=== PATIENT | female | born 2000 | race Caucasian/White ===

== ENCOUNTER 2024-06-29 21:51 | Emergency (ER) | payer MEDICAID, OTHER ==
[~2024-06-29] VITALS: Ht 157.5 cm; Wt 101.0 kg
[2024-06-30] MEDS: ONDANSETRON 4MG ORAL DISINTEGRATING TAB PO ONE (01:54)
[2024-06-30 02:11] LABS: HEMATOCRIT 38.9 % (36.0-47.0); HEMOGLOBIN 13.1 g/dl (12.0-15.5); MEAN CORPUSCULAR HEMOGLOBIN 27.7 pg (27.0-33.0); MEAN CORPUSCULAR HGB CONC 33.7 g/dl (32.0-36.5); MEAN CORPUSCULAR VOLUME 82.2 fl (80.0-96.0); PLATELET COUNT, AUTOMATED 348 10^3/uL (150-450); RED BLOOD COUNT 4.73 10^6/uL (4.00-5.40); WHITE BLOOD COUNT 10.2 10^3/uL (4.0-10.0)
[2024-06-30 02:37] LABS: ATYPICAL LYMPH 4 % (0-5); EOSINOPHILS 3 % (0-3); LYMPHOCYTES 48 % (16-44); MONOCYTES 5 % (0-5); NEUTROPHILS 40 % (28-66); PLATELET ESTIMATE NORMAL (NORMAL)
[2024-06-30 02:42] LABS: BLOOD UREA NITROGEN < 5 MG/DL (9-23); CALCIUM LEVEL 9.4 MG/DL (8.5-10.1); CARBON DIOXIDE LEVEL 27 MMOL/L (20-31); CHLORIDE LEVEL 106 MMOL/L (98-107); CREATININE FOR GFR 0.41 MG/DL (0.55-1.30); GLOMERULAR FILTRATION RATE > 60.0 (>60); GLUCOSE, FASTING 241 MG/DL (60-100); POTASSIUM SERUM 4.1 MMOL/L (3.5-5.1); SODIUM LEVEL 139 MMOL/L (136-145)
[2024-06-30] MEDS ORDERED: CEPH500C PO (03:41)
[2024-06-30] MEDS ORDERED: ONDA-282 PO (03:41)
[2024-06-30] MEDS: CEPHALEXIN 500 MG CAP PO ONE (03:53)
[2024-06-30 04:01] VITALS: BP 162/89; TEMP 99.8; O2SAT 99
== END 2024-06-30 04:29 | disposition home or self-care (01) ==
LOC: EDBD 21:51 → M ED 21:51
DX: A09 Infectious gastroenteritis and colitis, unspecified (principal); H00.014 Hordeolum externum left upper eyelid; E11.9 Type 2 diabetes mellitus without complications; I10 Essential (primary) hypertension; F41.9 Anxiety disorder, unspecified

== ENCOUNTER 2024-08-19 19:32 | Emergency (ER) | payer OTHER ==
[~2024-08-19] VITALS: Ht 154.9 cm; Wt 102.6 kg
[~2024-08-19 19:32] MED LIST: CEPH500C PO; ONDA-282 PO
[2024-08-19] MEDS: NS (Normal Saline) 0.9% 1,000 ML IV ONE (20:50)
[2024-08-19 20:56] LABS: BASO % 0.2 % (0.0-1.0); EOS % 0.2 % (0.0-3.0); HEMATOCRIT 33.9 % (36.0-47.0); HEMOGLOBIN 11.4 g/dl (12.0-15.5); LYMPH # 2.2 10^3/uL (1.5-5.0); LYMPH % 16.1 % (24.0-44.0); MEAN CORPUSCULAR HEMOGLOBIN 27.4 pg (27.0-33.0); MEAN CORPUSCULAR HGB CONC 33.6 g/dl (32.0-36.5); MEAN CORPUSCULAR VOLUME 81.5 fl (80.0-96.0); MONO % 7.1 % (2.0-8.0); NEUTROPHILS # 10.4 10^3/uL (1.5-8.5); NEUTROPHILS % 75.6 % (36.0-66.0); PLATELET COUNT, AUTOMATED 310 10^3/uL (150-450); RED BLOOD COUNT 4.16 10^6/uL (4.00-5.40); WHITE BLOOD COUNT 13.7 10^3/uL (4.0-10.0)
[2024-08-19 20:59] LABS: VENOUS HCO3 21.9 MMOL/L (23.0-27.0); VENOUS O2 SATURATION 94.7 % (60.0-80.0); VENOUS PARTIAL PRESSURE CO2 34.7 mmHg (38.0-50.0); VENOUS PARTIAL PRESSURE O2 70.3 mmHg (30.0-50.0); VENOUS PH 7.418 UNITS (7.330-7.430); VENOUS STANDARD HCO3 22.7 MMOL/L
[2024-08-19 22:00] LABS: ALBUMIN 2.4 G/DL (3.2-5.2); ALKALINE PHOSPHATASE 101 U/L (35-104); ALT/SGPT 29 U/L (7.0-40); AST/SGOT 48 U/L (<34); BILIRUBIN,DIRECT < 0.1 MG/DL (<0.4); BILIRUBIN,TOTAL 0.3 MG/DL (0.3-1.2); BLOOD UREA NITROGEN < 5 MG/DL (9-23); CALCIUM LEVEL 9.3 MG/DL (8.5-10.1); CARBON DIOXIDE LEVEL 22 MMOL/L (20-31); CHLORIDE LEVEL 97 MMOL/L (98-107); CREATININE FOR GFR 0.46 MG/DL (0.55-1.30); GLOMERULAR FILTRATION RATE > 60.0 (>60); GLUCOSE, FASTING 368 MG/DL (60-100); POTASSIUM SERUM 5.8 MMOL/L (3.5-5.1); SODIUM LEVEL 129 MMOL/L (136-145); TOTAL PROTEIN 6.5 G/DL (5.7-8.2)
[2024-08-19 22:02] LABS: OSMOLALITY SERUM 283 MOSM/KG (275-295)
[2024-08-19 22:09] LABS: KETONE, URINE AUTO RFX NEGATIVE (NEGATIVE); NITRITE, URINE AUTO RFX NEGATIVE (NEGATIVE); RBC, URINE AUTO RFX 1 /HPF (0-3); SQUAM EPITHELIAL CELL UR AURFX 1 /HPF (0-6)
[2024-08-19 22:10] LABS: LEUKOCYTE ESTERASE UR AUTO RFX 3+ (NEGATIVE); WBC, URINE AUTO RFX 28 /HPF (0-3)
[2024-08-19 22:29] LABS: ACETONE/KETONE 0.11 MMOL/L (0.02-0.27)
[2024-08-19] MEDS ORDERED: CEFD300C PO (23:47)
[2024-08-19] MEDS: cefTRIAXone SOD 2 GM in DEXTROSE 5% (D5W) ADV/MINI-BAG 50 ML IV ONE (23:59)
[2024-08-20 00:15] VITALS: BP 107/68; TEMP 98; O2SAT 98
== END 2024-08-20 00:26 | disposition home or self-care (01) ==
LOC: M ED 19:32
DX: E11.65 Type 2 diabetes mellitus with hyperglycemia (principal); N39.0 Urinary tract infection, site not specified; F79 Unspecified intellectual disabilities; Z79.899 Other long term (current) drug therapy
CPT/HCPCS: 80048; 80076; 81001; 82010; 82803; 83930; 85025; 87088; 87186; 93041; 94760; 96361; 96365; 99285; J0696

== ENCOUNTER 2024-10-12 16:33 | Inpatient (IN) | payer OTHER ==
[~2024-10-12] VITALS: Ht 160 cm; Wt 100.8 kg
[~2024-10-12 16:33] MED LIST changes: +CEFD300C PO
[2024-10-12 17:21] LABS: HEMATOCRIT 38.5 % (36.0-47.0); HEMOGLOBIN 12.7 g/dl (12.0-15.5); MEAN CORPUSCULAR HEMOGLOBIN 27.7 pg (27.0-33.0); MEAN CORPUSCULAR VOLUME 84.1 fl (80.0-96.0); PLATELET COUNT, AUTOMATED 398 10^3/uL (150-450); RED BLOOD COUNT 4.58 10^6/uL (4.00-5.40); WHITE BLOOD COUNT 11.4 10^3/uL (4.0-10.0)
[2024-10-12 17:34] LABS: AMPHETAMINES LEVEL URINE NEGATIVE (NEGATIVE); BARBITURATES URINE NEGATIVE (NEGATIVE)
[2024-10-12 17:35] LABS: BENZODIAZEPINES URINE NEGATIVE (NEGATIVE); CANNABINOIDS URINE NEGATIVE (NEGATIVE); COCAINE METABOLITE URINE NEGATIVE (NEGATIVE); METHADONE URINE NEGATIVE (NEGATIVE); OPIATES URINE NEGATIVE (NEGATIVE); PHENCYCLIDINE URINE NEGATIVE (NEGATIVE)
[2024-10-12 17:37] LABS: ETHYL ALCOHOL (ETHANOL) 0.004 % (0.000-0.010)
[2024-10-12] MEDS ORDERED: VITA200021 PO (17:37)
[2024-10-12] MEDS ORDERED: METF-838 PO (17:37)
[2024-10-12] MEDS ORDERED: GUAN1TAB16 PO (17:37)
[2024-10-12] MEDS ORDERED: METO1TAB7 PO (17:37)
[2024-10-12] MEDS ORDERED: HYDR-3363 PO (17:37)
[2024-10-12] MEDS ORDERED: APAP325T4 PO (17:37)
[2024-10-12] MEDS ORDERED: LURA120T PO (17:37)
[2024-10-12] MEDS ORDERED: LAMO25TA4 PO (17:37)
[2024-10-12] MEDS ORDERED: INSU100V3 INJ (17:37)
[2024-10-12] MEDS ORDERED: TRAZ-252 PO (17:37)
[2024-10-12] MEDS ORDERED: NAPR-885 PO (17:37)
[2024-10-12] MEDS ORDERED: PRAZ1CAP PO (17:37)
[2024-10-12] MEDS ORDERED: SEMA1PEN2 SQ (17:37)
[2024-10-12] MEDS ORDERED: LANTINJ4 SC (17:37)
[2024-10-12] MEDS ORDERED: PANT40TA29 PO (17:37)
[2024-10-12] MEDS ORDERED: LORA-1041 PO (17:37)
[2024-10-12 17:38] LABS: SALICYLATE LEVEL < 3.0 MG/DL (<30)
[2024-10-12 17:39] LABS: ALBUMIN 3.6 G/DL (3.2-5.2); ALKALINE PHOSPHATASE 70 U/L (35-104); ALT/SGPT 34 U/L (7.0-40); AST/SGOT 19 U/L (<34); BILIRUBIN,DIRECT < 0.1 MG/DL (<0.4); BILIRUBIN,TOTAL 0.2 MG/DL (0.3-1.2); BLOOD UREA NITROGEN 8 MG/DL (9-23); CALCIUM LEVEL 9.9 MG/DL (8.5-10.1); CARBON DIOXIDE LEVEL 26 MMOL/L (20-31); CHLORIDE LEVEL 102 MMOL/L (98-107); CREATININE FOR GFR 0.52 MG/DL (0.55-1.30); GLOMERULAR FILTRATION RATE > 60.0 (>60); GLUCOSE, FASTING 168 MG/DL (60-100); HCG, SERUM QUALITATIVE NEGATIVE (NEGATIVE); POTASSIUM SERUM 4.4 MMOL/L (3.5-5.1); SODIUM LEVEL 138 MMOL/L (136-145); TOTAL PROTEIN 7.2 G/DL (5.7-8.2)
[2024-10-12] MEDS ORDERED: HOME MED LIST COMPLETE! XX SCH (17:40)
[2024-10-12 17:41] LABS: THYROID STIMULATING HORMONE 1.895 uIU/ML (0.55-4.78)
[2024-10-12] MEDS ORDERED: MOM 30ML SUSPENSION UDC PO PRN (21:10)
[2024-10-12] MEDS ORDERED: IBUPROFEN 400MG TAB PO PRN (21:10)
[2024-10-12] MEDS: diphenhydrAMINE 25MG CAP PO PRN (23:18)
[2024-10-12] MEDS: traZODone 50 MG TAB PO PRN (23:18)
[2024-10-12 23:21] VITALS: BP 133/78; TEMP 97.7; O2SAT 100
[2024-10-13 07:01] VITALS: BP 129/80; TEMP 97.2; O2SAT 100
[2024-10-13] MEDS ORDERED: GLUCOSE 4 GM CHEW PO PRN (12:25)
[2024-10-13] MEDS ORDERED: GLUCAGON INJ 1MG VIAL SC PRN (12:25)
[2024-10-13] MEDS ORDERED: DEXTROSE 50% 50ML SYRINGE IV PRN (12:25)
[2024-10-13] MEDS ORDERED: ALBUTEROL SULFATE 2.5MG/0.5ML INH CONCENTRATE NEB SOLN INH PRN (12:30)
[2024-10-13] MEDS: VITAMIN D 1,000 INTERNATIONAL UNITS TABLET PO SCH (12:50)
[2024-10-13] MEDS: lamoTRIgine 25MG TAB PO SCH ×2 (12:51→20:19)
[2024-10-13] MEDS: METOPROLOL SUCC (TopROL XL) 50MG **XL** TAB PO SCH (12:51)
[2024-10-13] MEDS: PANTOPRAZOLE 40MG TAB (PROTONIX) PO SCH (12:51)
[2024-10-13] MEDS ORDERED: BETA0.0543 TOP (12:52)
[2024-10-13] MEDS: LanTUS (INSULIN GLARGINE INJ) 1 UNITS/0.01 ML SC SCH (13:16)
[2024-10-13] MEDS: BETAMETHASONE DIP 0.05% OINT 15GM TOP SCH (15:09)
[2024-10-13] MEDS: OLANZapine 5 MG TAB PO PRN (15:37)
[2024-10-13 15:49] VITALS: BP 122/84; TEMP 97.8; O2SAT 98
[2024-10-13] MEDS: ACETAMINOPHEN 325 MG TAB PO PRN (15:51)
[2024-10-13] MEDS: INSULIN LISPRO (NovoLOG) PER UNIT SC SCH ×2 (17:27→20:19)
[2024-10-13] MEDS: LURASIDONE HCL 40MG TAB (LATUDA) PO SCH (17:27)
[2024-10-13] MEDS: PRAZOSIN 1 MG CAP PO SCH (20:20)
[2024-10-14 06:35] VITALS: BP 142/84; TEMP 97.5; O2SAT 100
[2024-10-14] MEDS: NICOTINE POLACRILEX 2 MG GUM PO PRN ×2 (11:22→15:28)
[2024-10-14] MEDS: FLUTICASONE PROP 0.05% NASAL SPRAY 16 GM (FLONASE) NARES SCH (14:32)
[2024-10-14 15:53] VITALS: BP 137/96; TEMP 97.9; O2SAT 100; O2SAT 15
[2024-10-14] MEDS: MAALOX 30 ML SUSP *UDC PO PRN (22:07)
[2024-10-15 07:00] VITALS: BP 129/64; TEMP 97; O2SAT 98
[2024-10-15 15:44] VITALS: BP 138/89; TEMP 98.9; O2SAT 98
[2024-10-16 07:02] VITALS: BP 139/71; TEMP 97.5; O2SAT 97
[2024-10-16 15:12] VITALS: BP 103/60; TEMP 97.1; O2SAT 100
[2024-10-17 06:33] VITALS: BP 162/92; TEMP 97.8; O2SAT 98
[2024-10-17 08:26] VITALS: BP 145/67
[2024-10-17 08:29] VITALS: BP 145/67
[2024-10-17] MEDS: BLISTEX OINTMENT TOP PRN (08:30)
[2024-10-17] MEDS ORDERED: NICO2GUM PO (08:50)
[2024-10-17] MEDS ORDERED: LATU120T PO (13:11)
[2024-10-17] MEDS ORDERED: LURA120T PO (13:11)
== END 2024-10-17 11:36 | disposition home or self-care (01) | DRG 753 ==
LOC: M ED 16:33 → M ED INP 21:09 → M PSY 22:56
PROVIDERS: ADMIT Psychiatry & Neurology Neurology; ATTEND Psychiatry & Neurology Neurology
DX: F31.4 Bipolar disorder, current episode depressed, severe, without psychotic features (principal); E11.9 Type 2 diabetes mellitus without complications; R45.851 Suicidal ideations; F79 Unspecified intellectual disabilities; I10 Essential (primary) hypertension; J45.909 Unspecified asthma, uncomplicated; L40.9 Psoriasis, unspecified; K21.9 Gastro-esophageal reflux disease without esophagitis; F17.290 Nicotine dependence, other tobacco product, uncomplicated; Z79.84 Long term (current) use of oral hypoglycemic drugs; Z79.899 Other long term (current) drug therapy; Z90.49 Acquired absence of other specified parts of digestive tract; F41.9 Anxiety disorder, unspecified

== ENCOUNTER 2024-10-26 16:28 | Emergency (ER) | payer OTHER ==
[~2024-10-26] VITALS: Ht 152.4 cm; Wt 79.5 kg
[~2024-10-26 16:28] MED LIST changes: +APAP325T4 PO; +BETA0.0543 TOP; +GUAN1TAB16 PO; +HYDR-3363 PO; +INSU100V3 INJ; +LAMO25TA4 PO; +LANTINJ4 SC; +LATU120T PO; +LORA-1041 PO; +LURA120T PO; +METF-838 PO; +METO1TAB7 PO; +NAPR-885 PO; +NICO2GUM PO; +PANT40TA29 PO; +PRAZ1CAP PO; +SEMA1PEN2 SQ; +TRAZ-252 PO; +VITA200021 PO
[2024-10-26 17:03] VITALS: BP 107/68; TEMP 97.5; O2SAT 100
[2024-10-26 17:24] LABS: HEMATOCRIT 37.9 % (36.0-47.0); HEMOGLOBIN 12.4 g/dl (12.0-15.5); MEAN CORPUSCULAR HEMOGLOBIN 27.3 pg (27.0-33.0); MEAN CORPUSCULAR HGB CONC 32.7 g/dl (32.0-36.5); MEAN CORPUSCULAR VOLUME 83.3 fl (80.0-96.0); PLATELET COUNT, AUTOMATED 522 10^3/uL (150-450); RED BLOOD COUNT 4.55 10^6/uL (4.00-5.40); WHITE BLOOD COUNT 11.9 10^3/uL (4.0-10.0)
[2024-10-26 17:50] LABS: AMPHETAMINES LEVEL URINE NEGATIVE (NEGATIVE); BARBITURATES URINE NEGATIVE (NEGATIVE); BENZODIAZEPINES URINE NEGATIVE (NEGATIVE); CANNABINOIDS URINE NEGATIVE (NEGATIVE); COCAINE METABOLITE URINE NEGATIVE (NEGATIVE); METHADONE URINE NEGATIVE (NEGATIVE); OPIATES URINE NEGATIVE (NEGATIVE); PHENCYCLIDINE URINE NEGATIVE (NEGATIVE)
[2024-10-26 17:52] LABS: ETHYL ALCOHOL (ETHANOL) 0.005 % (0.000-0.010)
[2024-10-26 17:54] LABS: ALBUMIN 3.4 G/DL (3.2-5.2); ALKALINE PHOSPHATASE 77 U/L (35-104); ALT/SGPT 37 U/L (7.0-40); AST/SGOT 25 U/L (<34); BILIRUBIN,DIRECT < 0.1 MG/DL (<0.4); BILIRUBIN,TOTAL 0.2 MG/DL (0.3-1.2); BLOOD UREA NITROGEN 9 MG/DL (9-23); CALCIUM LEVEL 9.9 MG/DL (8.5-10.1); CARBON DIOXIDE LEVEL 27 MMOL/L (20-31); CHLORIDE LEVEL 101 MMOL/L (98-107); CREATININE FOR GFR 0.54 MG/DL (0.55-1.30); GLOMERULAR FILTRATION RATE > 90.0 (>60); GLUCOSE, FASTING 161 MG/DL (60-100); POTASSIUM SERUM 4.6 MMOL/L (3.5-5.1); SALICYLATE LEVEL < 3.0 MG/DL (<30); SODIUM LEVEL 138 MMOL/L (136-145)
[2024-10-26 17:56] LABS: THYROID STIMULATING HORMONE 2.332 uIU/ML (0.55-4.78)
[2024-10-26 18:30] LABS: HCG, SERUM QUALITATIVE NEGATIVE (NEGATIVE)
[2024-10-26] MEDS ORDERED: LIDO1PAD TOP (19:17)
[2024-10-26] MEDS ORDERED: CALC0.004 TOP (19:17)
[2024-10-26] MEDS ORDERED: DOXY-440 PO (19:35)
[2024-10-26] MEDS ORDERED: HOME MED LIST COMPLETE! XX SCH (19:40)
== END 2024-10-26 21:40 | disposition home or self-care (01) ==
LOC: M ED 16:28 → EDBD 16:28 → M ED 21:40
DX: F32.A Depression, unspecified (principal); E11.9 Type 2 diabetes mellitus without complications; I10 Essential (primary) hypertension; F17.200 Nicotine dependence, unspecified, uncomplicated; F12.10 Cannabis abuse, uncomplicated; Z79.4 Long term (current) use of insulin; Z79.899 Other long term (current) drug therapy

== ENCOUNTER 2024-11-15 23:38 | Emergency (ER) | payer OTHER ==
[~2024-11-15] VITALS: Ht 160 cm; Wt 81.8 kg
[~2024-11-15 23:38] MED LIST changes: +CALC0.004 TOP; +DOXY-440 PO; +LIDO1PAD TOP
[2024-11-16] MEDS: ONDANSETRON 4MG ORAL DISINTEGRATING TAB PO ONE (07:04)
[2024-11-16] MEDS ORDERED: SUCR1TA PO (08:14)
[2024-11-16] MEDS ORDERED: ONDA-282 PO (08:14)
[2024-11-16 08:15] VITALS: BP 119/63; TEMP 97.5; O2SAT 99
== END 2024-11-16 08:33 | disposition home or self-care (01) ==
LOC: M ED 23:38 → EDBD 23:38 → M ED 11-16 08:33
DX: R11.2 Nausea with vomiting, unspecified (principal); E11.9 Type 2 diabetes mellitus without complications; I10 Essential (primary) hypertension; F32.9 Major depressive disorder, single episode, unspecified; F17.200 Nicotine dependence, unspecified, uncomplicated; Z79.4 Long term (current) use of insulin; Z79.899 Other long term (current) drug therapy

== ENCOUNTER → 2024-11-30 | Outpatient (CLI) | payer OTHER ==
[~2024-11-30] MED LIST changes: +LAMO-18 PO; -LAMO25TA4 PO; +SUCR1TA PO
[2024-11-30 12:20] LABS: APPEARANCE, URINE CLEAR (CLEAR); BACTERIA, URINE AUTO 1+ (NEGATIVE); BILIRUBIN, URINE AUTO NEGATIVE (NEGATIVE); BLOOD, URINE BLOOD NEGATIVE (NEGATIVE); COLOR, URINE STRAW (YELLOW); GLUCOSE, URINE (UA) AUTO NEGATIVE (NEGATIVE); KETONE, URINE AUTO NEGATIVE (NEGATIVE); LEUKOCYTE ESTERASE, URINE AUTO NEGATIVE (NEGATIVE); NITRITE, URINE AUTO NEGATIVE (NEGATIVE); PROTEIN, URINE AUTO NEGATIVE (NEGATIVE); RBC, URINE AUTO 0 /HPF (0-3); SPECIFIC GRAVITY URINE AUTO 1.006 (1.002-1.035); SQUAMOUS EPITHELIAL CELL UR AU 1 /HPF (0-6); UROBILINOGEN, URINE AUTO 0.2 mg/dL (0.0-2.0); WBC, URINE AUTO 1 /HPF (0-3)
[2024-11-30 12:24] LABS: HEMATOCRIT 39.5 % (36.0-47.0); HEMOGLOBIN 12.8 g/dl (12.0-15.5); MEAN CORPUSCULAR HEMOGLOBIN 27.5 pg (27.0-33.0); MEAN CORPUSCULAR HGB CONC 32.4 g/dl (32.0-36.5); MEAN CORPUSCULAR VOLUME 84.9 fl (80.0-96.0); PLATELET COUNT, AUTOMATED 460 10^3/uL (150-450); RED BLOOD COUNT 4.65 10^6/uL (4.00-5.40); WHITE BLOOD COUNT 18.5 10^3/uL (4.0-10.0)
[2024-11-30 13:10] LABS: FREE T4 1.05 NG/DL (0.89-1.76); THYROID STIMULATING HORMONE 3.688 uIU/ML (0.55-4.78)
[2024-11-30 13:11] LABS: HEMOGLOBIN A1c 8.4 % (4.0-6.0)
[2024-11-30 13:16] LABS: ALBUMIN 3.7 G/DL (3.2-5.2); ALKALINE PHOSPHATASE 65 U/L (35-104); ALT/SGPT 38 U/L (7.0-40); AST/SGOT 17 U/L (<34); BILIRUBIN,TOTAL 0.2 MG/DL (0.3-1.2); BLOOD UREA NITROGEN 12 MG/DL (9-23); CALCIUM LEVEL 9.7 MG/DL (8.5-10.1); CARBON DIOXIDE LEVEL 24 MMOL/L (20-31); CHLORIDE LEVEL 102 MMOL/L (98-107); CHOLESTEROL LEVEL 183 MG/DL (<200); CHOLESTEROL RISK RATIO 4.18 (<5); CREATININE FOR GFR 0.63 MG/DL (0.55-1.30); GLOMERULAR FILTRATION RATE > 90.0 (>60); GLUCOSE, FASTING 111 MG/DL (60-100); HDL CHOLESTEROL 43.7 MG/DL (>40); LDL CHOLESTEROL 68.9 MG/DL (<100); NON-HDL-C 139.3 MG/DL; POTASSIUM SERUM 4.3 MMOL/L (3.5-5.1); SODIUM LEVEL 140 MMOL/L (136-145); TOTAL PROTEIN 6.7 G/DL (5.7-8.2); TRIGLYCERIDES LEVEL 352 MG/DL (<150)
[2024-11-30 13:35] LABS: HIV 1&2 SCREEN NEGATIVE (NEGATIVE)
[2024-11-30 13:43] LABS: HEPATITIS C VIRUS ABY INDEX 0.06 INDEX (<0.8)
[2024-11-30 15:11] LABS: GC DNA AMPLIFICATION NEGATIVE (NEGATIVE)
[2024-12-01 16:22] LABS: Trichomonas vaginalis (AMP) NOT DETECTED (NEGATIVE)
== END ==
LOC: M WUC 08:15
PROVIDERS: ATTEND Internal Medicine
DX: Z00.00 Encounter for general adult medical examination without abnormal findings (principal); Z79.899 Other long term (current) drug therapy; E66.9 Obesity, unspecified

== ENCOUNTER 2025-01-17 23:07 | Emergency (ER) | payer OTHER ==
[~2025-01-17] VITALS: Ht 157.5 cm; Wt 102.0 kg
[2025-01-18 00:22] LABS: ETHYL ALCOHOL (ETHANOL) < 0.003 % (0.000-0.010)
[2025-01-18 00:23] LABS: SALICYLATE LEVEL < 3.0 MG/DL (<30)
[2025-01-18 00:24] LABS: ALT/SGPT 38 U/L (7.0-40); AST/SGOT 28 U/L (<34); CALCIUM LEVEL 10.5 MG/DL (8.5-10.1); CARBON DIOXIDE LEVEL 25 MMOL/L (20-31); CHLORIDE LEVEL 101 MMOL/L (98-107); CREATININE FOR GFR 0.53 MG/DL (0.55-1.30); GLOMERULAR FILTRATION RATE > 90.0 (>60); POTASSIUM SERUM 4.3 MMOL/L (3.5-5.1); SODIUM LEVEL 140 MMOL/L (136-145)
[2025-01-18 00:26] LABS: PLATELET COUNT, AUTOMATED 441 10^3/uL (150-450)
[2025-01-18 00:29] LABS: AMPHETAMINES LEVEL URINE NEGATIVE (NEGATIVE); BARBITURATES URINE NEGATIVE (NEGATIVE); BENZODIAZEPINES URINE NEGATIVE (NEGATIVE); CANNABINOIDS URINE NEGATIVE (NEGATIVE); COCAINE METABOLITE URINE NEGATIVE (NEGATIVE); METHADONE URINE NEGATIVE (NEGATIVE); OPIATES URINE NEGATIVE (NEGATIVE); PHENCYCLIDINE URINE NEGATIVE (NEGATIVE)
[2025-01-18 00:40] LABS: HCG, SERUM QUALITATIVE NEGATIVE (NEGATIVE)
[2025-01-18] MEDS: traZODone 50 MG TAB PO ONE ×2 (01:10→01:13)
[2025-01-18] MEDS ORDERED: VANICREAM MOISTURIZING SKIN CREAM 113GM TUBE TOP STA (02:45)
[2025-01-18] MEDS: VANICREAM MOISTURIZING SKIN CREAM 113GM TUBE TOP STA (03:00)
[2025-01-18 07:43] VITALS: BP 129/71; TEMP 98.2; O2SAT 100
== END 2025-01-18 08:59 | disposition home or self-care (01) ==
LOC: M ED 23:07
DX: F43.20 Adjustment disorder, unspecified (principal); E11.9 Type 2 diabetes mellitus without complications; F17.200 Nicotine dependence, unspecified, uncomplicated; Z79.4 Long term (current) use of insulin; Z79.899 Other long term (current) drug therapy

== ENCOUNTER → 2025-02-01 | Outpatient (CLI) | payer OTHER ==
[2025-02-01 18:52] LABS: ALT/SGPT 37 U/L (7.0-40); AST/SGOT 28 U/L (<34); BASO # 0.0 10^3/uL (0.0-0.2); BASO % 0.3 % (0.0-1.0); CALCIUM LEVEL 9.9 MG/DL (8.5-10.1); CARBON DIOXIDE LEVEL 23 MMOL/L (20-31); CHLORIDE LEVEL 104 MMOL/L (98-107); CREATININE FOR GFR 0.53 MG/DL (0.55-1.30); EOS # 0.4 10^3/uL (0.0-0.5); EOS % 2.8 % (0.0-3.0); GLOMERULAR FILTRATION RATE > 90.0 (>60); LYMPH # 4.6 10^3/uL (1.5-5.0); LYMPH % 34.0 % (24.0-44.0); MONO # 0.6 10^3/uL (0.0-0.8); MONO % 4.0 % (2.0-8.0); NEUTROPHILS # 8.0 10^3/uL (1.5-8.5); NEUTROPHILS % 58.5 % (36.0-66.0); PLATELET COUNT, AUTOMATED 486 10^3/uL (150-450); POTASSIUM SERUM 4.2 MMOL/L (3.5-5.1); SODIUM LEVEL 143 MMOL/L (136-145)
[2025-02-01 18:55] LABS: HEPATITIS B SURFACE ANTIBODY NEGATIVE (POSITIVE)
[2025-02-01 18:58] LABS: HCG, SERUM QUALITATIVE NEGATIVE (NEGATIVE)
[2025-02-01 19:26] LABS: HEPATITIS C VIRUS ABY INDEX < 0.02 INDEX (<0.8)
[2025-02-02 10:04] LABS: HIV 1&2 SCREEN NEGATIVE (NEGATIVE)
== END ==
LOC: M WUC 14:51
PROVIDERS: ATTEND Physician Assistant
DX: L40.9 Psoriasis, unspecified (principal)

== ENCOUNTER → 2025-02-02 | Outpatient (CLI) | payer OTHER | LOC: M LAB 13:24 | PROVIDERS: ATTEND Physician Assistant | DX: R21 Rash and other nonspecific skin eruption (principal) ==

== ENCOUNTER 2025-02-17 09:18 | Emergency (ER) | payer OTHER ==
[~2025-02-17] VITALS: Ht 160 cm; Wt 101.5 kg
[~2025-02-17 09:18] MED LIST changes: -INSU100V3 INJ; +INSU100V3 SUBQ
[2025-02-17 11:05] LABS: VENOUS BASE EXCESS -1.0 (-2.0-2.0); VENOUS HCO3 23.8 MMOL/L (23.0-27.0); VENOUS O2 SATURATION 82.6 % (60.0-80.0); VENOUS PARTIAL PRESSURE CO2 40.2 mmHg (38.0-50.0); VENOUS PARTIAL PRESSURE O2 46.3 mmHg (30.0-50.0); VENOUS PH 7.390 UNITS (7.330-7.430); VENOUS STANDARD HCO3 23.3 MMOL/L; VENOUS TOTAL CO2 25.0 MMOL/L (24.0-28.0)
[2025-02-17 11:08] LABS: BASO # 0.0 10^3/uL (0.0-0.2); BASO % 0.2 % (0.0-1.0); EOS # 0.1 10^3/uL (0.0-0.5); EOS % 0.7 % (0.0-3.0); LYMPH # 1.9 10^3/uL (1.5-5.0); LYMPH % 18.9 % (24.0-44.0); MONO # 0.1 10^3/uL (0.0-0.8); MONO % 1.1 % (2.0-8.0); NEUTROPHILS # 8.0 10^3/uL (1.5-8.5); NEUTROPHILS % 78.8 % (36.0-66.0); PLATELET COUNT, AUTOMATED 436 10^3/uL (150-450)
[2025-02-17] MEDS: ONDANSETRON 4MG ORAL DISINTEGRATING TAB PO ONE (11:13)
[2025-02-17] MEDS ORDERED: PRED20TA PO (11:34)
[2025-02-17] MEDS ORDERED: FLUOCRE TOP (11:34)
[2025-02-17] MEDS ORDERED: SEMA2PEN SQ (11:34)
[2025-02-17] MEDS ORDERED: KETO120S5 TOP (11:34)
[2025-02-17] MEDS ORDERED: HOME MED LIST COMPLETE! XX SCH (11:40)
[2025-02-17 11:54] LABS: KETONE, URINE AUTO RFX NEGATIVE (NEGATIVE); LEUKOCYTE ESTERASE UR AUTO RFX NEGATIVE (NEGATIVE); NITRITE, URINE AUTO RFX NEGATIVE (NEGATIVE); RBC, URINE AUTO RFX 0 /HPF (0-3); SQUAM EPITHELIAL CELL UR AURFX 2 /HPF (0-6); WBC, URINE AUTO RFX 0 /HPF (0-3)
[2025-02-17] MEDS ORDERED: ONDA-282 PO ×2 (11:55→12:55)
[2025-02-17] MEDS ORDERED: D3 H10002 PO (11:55)
[2025-02-17] MEDS ORDERED: TRIA1CR80 TOP (11:55)
[2025-02-17 13:07] VITALS: BP 114/72; TEMP 98.3; O2SAT 98
== END 2025-02-17 13:08 | disposition home or self-care (01) ==
LOC: M ED 09:18 → EDBD 09:18 → M ED 13:08
DX: R11.0 Nausea (principal); I10 Essential (primary) hypertension; E11.9 Type 2 diabetes mellitus without complications; R62.50 Unspecified lack of expected normal physiological development in childhood; Z79.4 Long term (current) use of insulin; Z79.899 Other long term (current) drug therapy

== ENCOUNTER 2025-02-20 00:08 | Inpatient (IN) | payer OTHER ==
[~2025-02-20] VITALS: Ht 160 cm; Wt 100.4 kg
[~2025-02-20 00:08] MED LIST changes: +D3 H10002 PO; +FLUOCRE TOP; +KETO120S5 TOP; +PRED20TA PO; +SEMA2PEN SQ; +TRIA1CR80 TOP
[2025-02-20 02:13] LABS: PLATELET COUNT, AUTOMATED 524 10^3/uL (150-450)
[2025-02-20 02:37] LABS: AMPHETAMINES LEVEL URINE NEGATIVE (NEGATIVE); BARBITURATES URINE NEGATIVE (NEGATIVE); BENZODIAZEPINES URINE NEGATIVE (NEGATIVE); CANNABINOIDS URINE NEGATIVE (NEGATIVE); COCAINE METABOLITE URINE NEGATIVE (NEGATIVE); METHADONE URINE NEGATIVE (NEGATIVE); OPIATES URINE NEGATIVE (NEGATIVE); PHENCYCLIDINE URINE NEGATIVE (NEGATIVE)
[2025-02-20 02:39] LABS: ETHYL ALCOHOL (ETHANOL) 0.004 % (0.000-0.010)
[2025-02-20 02:41] LABS: ALT/SGPT 34 U/L (7.0-40); AST/SGOT 18 U/L (<34); CALCIUM LEVEL 10.3 MG/DL (8.5-10.1); CARBON DIOXIDE LEVEL 24 MMOL/L (20-31); CHLORIDE LEVEL 102 MMOL/L (98-107); CREATININE FOR GFR 0.53 MG/DL (0.55-1.30); GLOMERULAR FILTRATION RATE > 90.0 (>60); POTASSIUM SERUM 4.1 MMOL/L (3.5-5.1); SALICYLATE LEVEL < 3.0 MG/DL (<30); SODIUM LEVEL 139 MMOL/L (136-145)
[2025-02-20] MEDS: traZODone 100 MG TAB PO ONE (04:22)
[2025-02-20] MEDS: ACETAMINOPHEN 325 MG TAB PO ONE (04:23)
[2025-02-20 04:32] LABS: APPEARANCE, URINE CLEAR (CLEAR); BACTERIA, URINE AUTO 1+ (NEGATIVE); BILIRUBIN, URINE AUTO NEGATIVE (NEGATIVE); BLOOD, URINE BLOOD NEGATIVE (NEGATIVE); GLUCOSE, URINE (UA) AUTO 3+ mg/dL (NEGATIVE); KETONE, URINE AUTO NEGATIVE (NEGATIVE); LEUKOCYTE ESTERASE, URINE AUTO NEGATIVE (NEGATIVE); NITRITE, URINE AUTO NEGATIVE (NEGATIVE); PROTEIN, URINE AUTO NEGATIVE (NEGATIVE); RBC, URINE AUTO 0 /HPF (0-3); SPECIFIC GRAVITY URINE AUTO 1.003 (1.002-1.035); SQUAMOUS EPITHELIAL CELL UR AU 1 /HPF (0-6); UROBILINOGEN, URINE AUTO 0.2 mg/dL (0.0-2.0); WBC, URINE AUTO 1 /HPF (0-3)
[2025-02-20] MEDS ORDERED: GLUCOSE 4 GM CHEW PO PRN (06:50)
[2025-02-20] MEDS ORDERED: MOM 30 ML SUSPENSION UDC PO PRN (06:50)
[2025-02-20] MEDS ORDERED: DEXTROSE 50% 50 ML SYRINGE IV PRN (06:50)
[2025-02-20] MEDS ORDERED: GLUCAGON INJ 1 MG VIAL SC PRN (06:50)
[2025-02-20] MEDS: INSULIN LISPRO (NovoLOG) PER UNIT SC SCH ×2 (07:54→20:26)
[2025-02-20] MEDS ORDERED: FLUO1SOL TOP (10:50)
[2025-02-20] MEDS ORDERED: INSUH10VL SC (10:50)
[2025-02-20] MEDS ORDERED: HOME MED LIST COMPLETE! XX SCH (10:55)
[2025-02-20] MEDS ORDERED: NAPROXEN 250 MG TAB PO PRN (14:05)
[2025-02-20 14:24] VITALS: BP 111/72; TEMP 97.5; O2SAT 98
[2025-02-20] MEDS: LORATADINE 10 MG TAB PO SCH (14:30)
[2025-02-20] MEDS: PANTOPRAZOLE 40MG TAB PO SCH (14:32)
[2025-02-20] MEDS: METOPROLOL SUCC. 50 MG *XL* TAB PO SCH (14:32)
[2025-02-20] MEDS: PRAZOSIN 1 MG CAP PO SCH (20:26)
[2025-02-20] MEDS: lamoTRIgine 25 MG TAB PO SCH (20:26)
[2025-02-20] MEDS: ACETAMINOPHEN 325 MG TAB PO PRN (20:26)
[2025-02-21 06:43] VITALS: BP 132/77; TEMP 98.4; O2SAT 98
[2025-02-21] MEDS: MAALOX 30 ML SUSP *UDC PO PRN (07:18)
[2025-02-21] MEDS: IBUPROFEN 400 MG TAB PO PRN (08:23)
[2025-02-21] MEDS: NICOTINE 14 MG/24 HR TRANSDERMAL TD SCH (10:37)
[2025-02-21] MEDS: ESCITALOPRAM OXALATE 5 MG TABLET PO SCH (10:37)
[2025-02-21] MEDS: LIDOCAINE 5% PATCH TD SCH (10:46)
[2025-02-21 17:28] VITALS: BP 129/83; TEMP 97.1; O2SAT 99
[2025-02-21] MEDS: ONDANSETRON 4MG ORAL DISINTEGRATING TAB PO PRN (19:11)
[2025-02-21] MEDS: predniSONE 20 MG TAB PO SCH (20:33)
[2025-02-21] MEDS: traZODone 50 MG TAB PO PRN (20:33)
[2025-02-21] MEDS: PRAZOSIN 1 MG CAP PO SCH (20:35)
[2025-02-22] MEDS ORDERED: PRAZ1CAP PO (09:05)
[2025-02-22] MEDS ORDERED: LEXA5TAB13 PO (09:05)
[2025-02-22 09:08] VITALS: BP 147/92
[2025-02-22] MEDS: LanTUS (INSULIN GLARGINE INJ) 1 UNITS/0.01 ML SC SCH (09:10)
[2025-02-22] MEDS ORDERED: NICO14PA TD (10:13)
[2025-02-23] MEDS ORDERED: ACET1TAB55 PO (11:42)
[2025-02-24] MEDS ORDERED: predniSONE 20 MG TAB PO SCH (09:00)
[2025-03-03] MEDS ORDERED: predniSONE 20 MG TAB PO SCH (09:00)
== END 2025-02-22 11:57 | disposition home or self-care (01) | DRG 755 ==
LOC: M ED 00:08 → M ED INP 06:46 → M PSY 13:26
PROVIDERS: ADMIT Psychiatry & Neurology Neurology; ATTEND General Practice
DX: F43.10 Post-traumatic stress disorder, unspecified (principal); F33.1 Major depressive disorder, recurrent, moderate; R45.851 Suicidal ideations; F79 Unspecified intellectual disabilities; F41.9 Anxiety disorder, unspecified; I10 Essential (primary) hypertension; E11.9 Type 2 diabetes mellitus without complications; L40.9 Psoriasis, unspecified; K21.9 Gastro-esophageal reflux disease without esophagitis; J45.909 Unspecified asthma, uncomplicated; Z90.49 Acquired absence of other specified parts of digestive tract; Z79.4 Long term (current) use of insulin; Z79.899 Other long term (current) drug therapy; Z91.51 Personal history of suicidal behavior

== ENCOUNTER 2025-02-22 21:16 | Emergency (ER) | payer OTHER ==
[~2025-02-22] VITALS: Ht 160 cm; Wt 102.8 kg
[~2025-02-22 21:16] MED LIST changes: +FLUO1SOL TOP; +INSUH10VL SC; +LEXA5TAB13 PO; +NICO14PA TD
[2025-02-22 22:18] LABS: PLATELET COUNT, AUTOMATED 559 10^3/uL (150-450)
[2025-02-22 22:37] LABS: AMPHETAMINES LEVEL URINE NEGATIVE (NEGATIVE); BENZODIAZEPINES URINE NEGATIVE (NEGATIVE)
[2025-02-22 22:38] LABS: BARBITURATES URINE NEGATIVE (NEGATIVE); CANNABINOIDS URINE NEGATIVE (NEGATIVE); COCAINE METABOLITE URINE NEGATIVE (NEGATIVE); METHADONE URINE NEGATIVE (NEGATIVE); OPIATES URINE NEGATIVE (NEGATIVE); PHENCYCLIDINE URINE NEGATIVE (NEGATIVE)
[2025-02-22 22:41] LABS: ETHYL ALCOHOL (ETHANOL) < 0.003 % (0.000-0.010)
[2025-02-22 22:42] LABS: ALT/SGPT 36 U/L (7.0-40); AST/SGOT 18 U/L (<34); CALCIUM LEVEL 10.5 MG/DL (8.5-10.1); CARBON DIOXIDE LEVEL 22 MMOL/L (20-31); CHLORIDE LEVEL 101 MMOL/L (98-107); CREATININE FOR GFR 0.44 MG/DL (0.55-1.30); GLOMERULAR FILTRATION RATE > 90.0 (>60); POTASSIUM SERUM 4.9 MMOL/L (3.5-5.1); SODIUM LEVEL 137 MMOL/L (136-145)
[2025-02-22 22:43] LABS: SALICYLATE LEVEL < 3.0 MG/DL (<30)
[2025-02-23] MEDS ORDERED: ACET1TAB55 PO (11:42)
[2025-02-23] MEDS ORDERED: HOME MED LIST COMPLETE! XX SCH (11:45)
[2025-02-23 13:56] VITALS: BP 140/86; TEMP 97.2; O2SAT 98
== END 2025-02-23 15:09 | disposition home or self-care (01) ==
LOC: M ED 21:16
DX: F60.3 Borderline personality disorder (principal); E11.9 Type 2 diabetes mellitus without complications; J45.909 Unspecified asthma, uncomplicated; L40.9 Psoriasis, unspecified; F43.10 Post-traumatic stress disorder, unspecified; F41.9 Anxiety disorder, unspecified; F31.32 Bipolar disorder, current episode depressed, moderate; F79 Unspecified intellectual disabilities; Z79.4 Long term (current) use of insulin; Z79.899 Other long term (current) drug therapy

== ENCOUNTER 2025-03-14 00:03 | Emergency (ER) | payer OTHER ==
[~2025-03-14] VITALS: Ht 157.5 cm; Wt 101.0 kg
[~2025-03-14 00:03] MED LIST changes: +ACET1TAB55 PO
[2025-03-14 05:58] VITALS: BP 119/71; TEMP 97.7; O2SAT 100
[2025-03-14] MEDS: ACETAMINOPHEN 500 MG TAB PO ONE (06:23)
== END 2025-03-14 06:36 | disposition home or self-care (01) ==
LOC: M ED 00:03
DX: H00.012 Hordeolum externum right lower eyelid (principal); E11.9 Type 2 diabetes mellitus without complications; Z79.4 Long term (current) use of insulin; Z79.899 Other long term (current) drug therapy

== ENCOUNTER 2025-03-23 22:36 | Emergency (ER) | payer OTHER ==
[~2025-03-23] VITALS: Ht 160 cm; Wt 103.5 kg
[2025-03-23 23:06] LABS: BASO # 0.0 10^3/uL (0.0-0.2); BASO % 0.2 % (0.0-1.0); EOS # 0.2 10^3/uL (0.0-0.5); EOS % 1.6 % (0.0-3.0); LYMPH # 5.1 10^3/uL (1.5-5.0); LYMPH % 47.8 % (24.0-44.0); MONO # 0.6 10^3/uL (0.0-0.8); MONO % 5.1 % (2.0-8.0); NEUTROPHILS # 4.8 10^3/uL (1.5-8.5); NEUTROPHILS % 45.1 % (36.0-66.0); PLATELET COUNT, AUTOMATED 358 10^3/uL (150-450)
[2025-03-23 23:07] VITALS: TEMP 98.7
[2025-03-23 23:29] LABS: CK-MB VALUE MASS < 1.0 NG/ML (<3.6)
[2025-03-23 23:55] LABS: CALCIUM LEVEL 9.2 MG/DL (8.5-10.1); CARBON DIOXIDE LEVEL 24 MMOL/L (20-31); CHLORIDE LEVEL 106 MMOL/L (98-107); CPK CREATINE PHOSPHOKINASE 40 U/L (34-145); CREATININE FOR GFR 0.61 MG/DL (0.55-1.30); GLOMERULAR FILTRATION RATE > 90.0 (>60); POTASSIUM SERUM 4.0 MMOL/L (3.5-5.1); SODIUM LEVEL 144 MMOL/L (136-145)
[2025-03-24] MEDS: KETOROLAC 30 MG/ML 1 ML VIAL IV ONE (01:13)
[2025-03-24 02:00] VITALS: BP 117/61; O2SAT 100
== END 2025-03-24 02:24 | disposition home or self-care (01) ==
LOC: M ED 22:36
DX: R07.9 Chest pain, unspecified (principal); E11.9 Type 2 diabetes mellitus without complications; I10 Essential (primary) hypertension; J45.909 Unspecified asthma, uncomplicated; Z79.3 Long term (current) use of hormonal contraceptives; Z79.4 Long term (current) use of insulin; Z79.899 Other long term (current) drug therapy
CPT/HCPCS: 71045; 80048; 82550; 82553; 84484; 85025; 93005; 93041; 94760; 96374; 99285; J1885

== ENCOUNTER 2025-03-27 18:16 | Emergency (ER) | payer OTHER ==
[2025-03-27] MEDS: ONDANSETRON 4MG ORAL DISINTEGRATING TAB PO ONE (19:10)
[2025-03-27 19:23] LABS: BASO # 0.0 10^3/uL (0.0-0.2); BASO % 0.3 % (0.0-1.0); EOS # 0.1 10^3/uL (0.0-0.5); EOS % 1.6 % (0.0-3.0); LYMPH # 3.9 10^3/uL (1.5-5.0); LYMPH % 43.2 % (24.0-44.0); MONO # 0.4 10^3/uL (0.0-0.8); MONO % 4.9 % (2.0-8.0); NEUTROPHILS # 4.5 10^3/uL (1.5-8.5); NEUTROPHILS % 49.8 % (36.0-66.0); PLATELET COUNT, AUTOMATED 394 10^3/uL (150-450)
[2025-03-27 19:54] LABS: ALT/SGPT 45 U/L (7.0-40); AST/SGOT 23 U/L (<34); CALCIUM LEVEL 9.4 MG/DL (8.5-10.1); CARBON DIOXIDE LEVEL 22 MMOL/L (20-31); CHLORIDE LEVEL 104 MMOL/L (98-107); CREATININE FOR GFR 0.53 MG/DL (0.55-1.30); GLOMERULAR FILTRATION RATE > 90.0 (>60); POTASSIUM SERUM 4.2 MMOL/L (3.5-5.1); SODIUM LEVEL 139 MMOL/L (136-145)
[2025-03-27] MEDS ORDERED: traZODone 50 MG TAB PO ONE (22:45)
[2025-03-27] MEDS ORDERED: guanFACINE 1 MG TAB PO ONE (22:45)
[2025-03-27] MEDS ORDERED: VENTAER INH (22:48)
[2025-03-27] MEDS: lamoTRIgine 25 MG TAB PO ONE (23:32)
[2025-03-27] MEDS: INSULIN LISPRO (NovoLOG) PER UNIT SC STA (23:32)
[2025-03-27] MEDS: traZODone 100 MG TAB PO ONE (23:32)
[2025-03-27] MEDS: PRAZOSIN 1 MG CAP PO ONE (23:32)
[2025-03-27 23:33] VITALS: BP 113/63
[2025-03-27] MEDS: guanFACINE 1 MG TAB PO ONE (23:33)
[2025-03-27 23:38] VITALS: BP 121/74; TEMP 98.3; O2SAT 98
== END 2025-03-27 23:40 | disposition home or self-care (01) ==
LOC: M ED 18:16
DX: R06.02 Shortness of breath (principal); E11.9 Type 2 diabetes mellitus without complications; J45.909 Unspecified asthma, uncomplicated; Z79.4 Long term (current) use of insulin; Z79.899 Other long term (current) drug therapy
CPT/HCPCS: 36415; 71045; 80053; 85025; 99284; J1815

== ENCOUNTER 2025-04-01 02:00 | Emergency (ER) | payer OTHER ==
[~2025-04-01] VITALS: Ht 160 cm; Wt 101.3 kg
[~2025-04-01 02:00] MED LIST changes: +VENTAER INH
[2025-04-01] MEDS: IBUPROFEN 800 MG TAB PO ONE (08:50)
[2025-04-01] MEDS ORDERED: IBUP600T42 PO (09:19)
[2025-04-01 09:33] VITALS: BP 134/76; TEMP 97.8; O2SAT 98
== END 2025-04-01 09:48 | disposition home or self-care (01) ==
LOC: M ED 09:06
DX: M25.512 Pain in left shoulder (principal); E11.9 Type 2 diabetes mellitus without complications; Z79.4 Long term (current) use of insulin; Z79.899 Other long term (current) drug therapy

== ENCOUNTER 2025-04-20 23:37 | Emergency (ER) | payer OTHER ==
[~2025-04-20] VITALS: Ht 160 cm; Wt 101.1 kg
[~2025-04-20 23:37] MED LIST changes: +IBUP600T42 PO
[2025-04-21 00:55] LABS: PLATELET COUNT, AUTOMATED 446 10^3/uL (150-450)
[2025-04-21 01:23] LABS: ETHYL ALCOHOL (ETHANOL) < 0.003 % (0.000-0.010)
[2025-04-21 01:24] LABS: SALICYLATE LEVEL < 3.0 MG/DL (<30)
[2025-04-21 01:25] LABS: ALT/SGPT 32 U/L (7.0-40); AST/SGOT 19 U/L (<34); CALCIUM LEVEL 9.7 MG/DL (8.5-10.1); CARBON DIOXIDE LEVEL 22 MMOL/L (20-31); CHLORIDE LEVEL 106 MMOL/L (98-107); CREATININE FOR GFR 0.55 MG/DL (0.55-1.30); GLOMERULAR FILTRATION RATE > 90.0 (>60); POTASSIUM SERUM 4.0 MMOL/L (3.5-5.1); SODIUM LEVEL 141 MMOL/L (136-145)
[2025-04-21 01:34] LABS: AMPHETAMINES LEVEL URINE NEGATIVE (NEGATIVE); BARBITURATES URINE NEGATIVE (NEGATIVE); BENZODIAZEPINES URINE NEGATIVE (NEGATIVE); CANNABINOIDS URINE NEGATIVE (NEGATIVE); COCAINE METABOLITE URINE NEGATIVE (NEGATIVE); METHADONE URINE NEGATIVE (NEGATIVE); OPIATES URINE NEGATIVE (NEGATIVE); PHENCYCLIDINE URINE NEGATIVE (NEGATIVE)
[2025-04-21 02:18] VITALS: BP 114/77
[2025-04-21] MEDS: PRAZOSIN 1 MG CAP PO ONE (02:18)
[2025-04-21 07:15] LABS: HCG, SERUM QUALITATIVE NEGATIVE (NEGATIVE)
[2025-04-21] MEDS: INSULIN LISPRO (NovoLOG) PER UNIT SC SCH (08:11)
[2025-04-21] MEDS ORDERED: VENTAER INH (08:22)
[2025-04-21] MEDS ORDERED: INSU100V3 SQ (08:22)
[2025-04-21] MEDS ORDERED: SECU300P SQ (08:22)
[2025-04-21] MEDS ORDERED: GUAN1TAB18 PO (08:22)
[2025-04-21] MEDS ORDERED: HOME MED LIST COMPLETE! XX SCH (08:25)
[2025-04-21] MEDS: PANTOPRAZOLE 40MG TAB PO ONE (09:36)
[2025-04-21] MEDS: lamoTRIgine 25 MG TAB PO ONE (09:36)
[2025-04-21 10:20] VITALS: BP 125/89; TEMP 98.6; O2SAT 98
[2025-04-21] MEDS ORDERED: INSULIN LISPRO (NovoLOG) PER UNIT SC SCH (21:00)
== END 2025-04-21 10:21 | disposition home or self-care (01) ==
LOC: M ED 23:37
DX: F79 Unspecified intellectual disabilities (principal); F60.3 Borderline personality disorder; K21.9 Gastro-esophageal reflux disease without esophagitis; J45.909 Unspecified asthma, uncomplicated; F43.10 Post-traumatic stress disorder, unspecified; E11.9 Type 2 diabetes mellitus without complications; F31.9 Bipolar disorder, unspecified; Z79.899 Other long term (current) drug therapy; Z79.52 Long term (current) use of systemic steroids
CPT/HCPCS: 36415; 80048; 80076; 80143; 80307; 82077; 84443; 84703; 85027; 99284; J1815

== ENCOUNTER 2025-04-23 21:42 | Emergency (ER) | payer OTHER ==
[~2025-04-23] VITALS: Ht 154.9 cm; Wt 90.9 kg
[~2025-04-23 21:42] MED LIST changes: +GUAN1TAB18 PO; +INSU100V3 SQ; +SECU300P SQ
[2025-04-23 23:03] LABS: PLATELET COUNT, AUTOMATED 499 10^3/uL (150-450)
[2025-04-23 23:21] LABS: AMPHETAMINES LEVEL URINE NEGATIVE (NEGATIVE); BARBITURATES URINE NEGATIVE (NEGATIVE); BENZODIAZEPINES URINE NEGATIVE (NEGATIVE); CANNABINOIDS URINE NEGATIVE (NEGATIVE); COCAINE METABOLITE URINE NEGATIVE (NEGATIVE); METHADONE URINE NEGATIVE (NEGATIVE); OPIATES URINE NEGATIVE (NEGATIVE); PHENCYCLIDINE URINE NEGATIVE (NEGATIVE)
[2025-04-23 23:23] LABS: ETHYL ALCOHOL (ETHANOL) < 0.003 % (0.000-0.010)
[2025-04-23 23:24] LABS: SALICYLATE LEVEL < 3.0 MG/DL (<30)
[2025-04-23 23:25] LABS: ALT/SGPT 30 U/L (7.0-40); AST/SGOT 17 U/L (<34); CALCIUM LEVEL 10.0 MG/DL (8.5-10.1); CARBON DIOXIDE LEVEL 23 MMOL/L (20-31); CHLORIDE LEVEL 106 MMOL/L (98-107); CREATININE FOR GFR 0.48 MG/DL (0.55-1.30); GLOMERULAR FILTRATION RATE > 90.0 (>60); POTASSIUM SERUM 4.3 MMOL/L (3.5-5.1); SODIUM LEVEL 142 MMOL/L (136-145)
[2025-04-23 23:53] LABS: HCG, SERUM QUALITATIVE NEGATIVE (NEGATIVE)
[2025-04-24] MEDS ORDERED: HOME MED LIST COMPLETE! XX SCH (08:30)
[2025-04-24] MEDS ORDERED: ALBUTEROL 90 MCG/ACT 8 GM HFA INHALER INH PRN (08:55)
[2025-04-24] MEDS ORDERED: DEXTROSE 50% 50 ML SYRINGE IV PRN (09:40)
[2025-04-24] MEDS ORDERED: GLUCOSE 4 GM CHEW PO PRN (09:40)
[2025-04-24] MEDS ORDERED: GLUCAGON INJ 1 MG VIAL SC PRN (09:40)
[2025-04-24] MEDS: lamoTRIgine 25 MG TAB PO ONE (10:00)
[2025-04-24] MEDS: PANTOPRAZOLE 40MG TAB PO ONE (10:00)
[2025-04-24] MEDS: LanTUS (INSULIN GLARGINE INJ) 1 UNITS/0.01 ML SC SCH (10:01)
[2025-04-24] MEDS: INSULIN LISPRO (NovoLOG) PER UNIT SC SCH (13:18)
[2025-04-24 13:43] VITALS: BP 106/67; TEMP 97.6; O2SAT 99
[2025-04-24] MEDS ORDERED: LURASIDONE HCL 20 MG TAB PO SCH (21:00)
[2025-04-24] MEDS ORDERED: GUANFACINE 3 MG PO SCH (21:00)
[2025-04-24] MEDS ORDERED: VITAMIN D 1,000 INTERNATIONAL UNITS TABLET PO SCH ×2 (21:00)
[2025-04-24] MEDS ORDERED: PRAZOSIN 1 MG CAP PO ONE (21:00)
[2025-04-24] MEDS ORDERED: traZODone 100 MG TAB PO ONE (21:00)
[2025-04-24] MEDS ORDERED: METOPROLOL SUCC. 50 MG *XL* TAB PO SCH (21:00)
[2025-04-24] MEDS ORDERED: ENTER DRUG NAME HERE (PATIENT'S OWN MED) PO SCH (21:00)
[2025-04-24] MEDS ORDERED: LURASIDONE HCL 40 MG TAB PO SCH (21:00)
[2025-04-24] MEDS ORDERED: traZODone 100 MG TAB PO SCH (21:00)
[2025-04-24] MEDS ORDERED: PRAZOSIN 1 MG CAP PO SCH (21:00)
[2025-04-24] MEDS ORDERED: METOPROLOL SUCC. 50 MG *XL* TAB PO ONE (21:00)
== END 2025-04-24 13:55 | disposition home or self-care (01) ==
LOC: M ED 21:42
DX: F60.3 Borderline personality disorder (principal); F31.9 Bipolar disorder, unspecified; E11.9 Type 2 diabetes mellitus without complications; I10 Essential (primary) hypertension; F43.10 Post-traumatic stress disorder, unspecified; J45.909 Unspecified asthma, uncomplicated; L40.9 Psoriasis, unspecified; F79 Unspecified intellectual disabilities; Z79.899 Other long term (current) drug therapy; Z79.4 Long term (current) use of insulin; Z79.84 Long term (current) use of oral hypoglycemic drugs
CPT/HCPCS: 36415; 80048; 80076; 80143; 80307; 82077; 84443; 84703; 85027; 99284; J1815

== ENCOUNTER 2025-05-05 22:47 | Emergency (ER) | payer OTHER ==
[2025-05-05 23:28] LABS: PLATELET COUNT, AUTOMATED 464 10^3/uL (150-450)
[2025-05-06 00:09] LABS: ETHYL ALCOHOL (ETHANOL) 0.005 % (0.000-0.010)
[2025-05-06 00:11] LABS: ALT/SGPT 29 U/L (7.0-40); AST/SGOT 17 U/L (<34); CALCIUM LEVEL 9.9 MG/DL (8.5-10.1); CARBON DIOXIDE LEVEL 25 MMOL/L (20-31); CHLORIDE LEVEL 105 MMOL/L (98-107); CREATININE FOR GFR 0.51 MG/DL (0.55-1.30); GLOMERULAR FILTRATION RATE > 90.0 (>60); POTASSIUM SERUM 4.3 MMOL/L (3.5-5.1); SALICYLATE LEVEL < 3.0 MG/DL (<30); SODIUM LEVEL 141 MMOL/L (136-145)
[2025-05-06 00:16] LABS: AMPHETAMINES LEVEL URINE NEGATIVE (NEGATIVE); BARBITURATES URINE NEGATIVE (NEGATIVE); BENZODIAZEPINES URINE NEGATIVE (NEGATIVE); CANNABINOIDS URINE NEGATIVE (NEGATIVE); COCAINE METABOLITE URINE NEGATIVE (NEGATIVE); METHADONE URINE NEGATIVE (NEGATIVE); OPIATES URINE NEGATIVE (NEGATIVE); PHENCYCLIDINE URINE NEGATIVE (NEGATIVE)
[2025-05-06] MEDS ORDERED: NAPR-885 PO (03:30)
[2025-05-06] MEDS ORDERED: CALC0.004 TOP (03:30)
[2025-05-06] MEDS ORDERED: ACET1TAB55 PO (04:08)
[2025-05-06] MEDS ORDERED: HOME MED LIST COMPLETE! XX SCH (04:10)
[2025-05-06] MEDS ORDERED: GLUCOSE 4 GM CHEW PO PRN (08:15)
[2025-05-06] MEDS ORDERED: GLUCAGON INJ 1 MG VIAL SC PRN (08:15)
[2025-05-06] MEDS ORDERED: DEXTROSE 50% 50 ML SYRINGE IV PRN (08:15)
[2025-05-06] MEDS ORDERED: ACETAMINOPHEN 325 MG TAB PO PRN (08:20)
[2025-05-06] MEDS: lamoTRIgine 25 MG TAB PO SCH (08:47)
[2025-05-06] MEDS: PANTOPRAZOLE 40MG TAB PO SCH (08:47)
[2025-05-06] MEDS: INSULIN LISPRO (NovoLOG) PER UNIT SC SCH (08:48)
[2025-05-06 16:45] VITALS: BP 115/68; TEMP 97.4; O2SAT 99
[2025-05-06] MEDS: LURASIDONE HCL 40 MG TAB PO SCH (18:11)
[2025-05-06] MEDS ORDERED: traZODone 50 MG TAB PO SCH (21:00)
[2025-05-06] MEDS ORDERED: INSULIN LISPRO (NovoLOG) PER UNIT SC SCH (21:00)
[2025-05-06] MEDS ORDERED: PRAZOSIN 1 MG CAP PO SCH (21:00)
[2025-05-06] MEDS ORDERED: METOPROLOL SUCC. 50 MG *XL* TAB PO SCH (21:00)
== END 2025-05-06 18:26 | disposition home or self-care (01) ==
LOC: M ED 22:47
DX: F43.21 Adjustment disorder with depressed mood (principal); E11.9 Type 2 diabetes mellitus without complications; I10 Essential (primary) hypertension; Z79.4 Long term (current) use of insulin; Z79.899 Other long term (current) drug therapy
CPT/HCPCS: 80048; 80076; 80143; 80307; 82077; 84443; 85027; 96372; 99284; J1815

== ENCOUNTER 2025-05-17 20:28 | Emergency (ER) | payer OTHER ==
[~2025-05-17] VITALS: Ht 154.9 cm; Wt 90.9 kg
[2025-05-17 22:17] VITALS: BP 107/73; TEMP 97.4; O2SAT 100
== END 2025-05-17 22:25 | disposition home or self-care (01) ==
LOC: M ED 20:28
DX: F43.0 Acute stress reaction (principal); E11.9 Type 2 diabetes mellitus without complications; I10 Essential (primary) hypertension; J45.909 Unspecified asthma, uncomplicated; F32.A Depression, unspecified; F43.10 Post-traumatic stress disorder, unspecified; Z79.4 Long term (current) use of insulin; Z79.899 Other long term (current) drug therapy